=== PATIENT | female | born 1960 | race Caucasian/White ===

== ENCOUNTER 2025-06-24 13:45 | Emergency (ER) | payer OTHER ==
[~2025-06-24] VITALS: Ht 157.5 cm; Wt 51.0 kg
[2025-06-24 14:07] VITALS: O2SAT 97
[2025-06-24] MEDS: KETOROLAC 30MG/ML VIAL IM ONE (15:39)
[2025-06-24 16:15] VITALS: BP 125/55; PULSE 80; RESP 15; TEMP 36.8; O2SAT 99
== END 2025-06-24 16:17 | disposition home or self-care (01) ==
LOC: ER 13:45
DX: M25.561 Pain in right knee (principal)
CPT/HCPCS: 73562; 96372; 99283